=== PATIENT | female | born 1990 | race American Indian/Alaskan Native ===

== ENCOUNTER 2016-09-29 09:03 | Emergency (ER) | payer MEDICAID ==
[2016-09-29 09:26] VITALS: BP 95/67
[2016-09-29] MEDS ORDERED: ZITHROMAX PO ONE (10:13)
[2016-09-29] MEDS ORDERED: ROCEPHIN IM ONE (10:13)
[2016-09-29] MEDS ORDERED: XYLOCAINE 1% MPF 5 mL INFILTRATI ONE (10:13)
--- NOTE | 2016-09-29 10:28 | Emergency Department Report ---
ED General Adult HPI - General Chief complaint: Urogenital-Female Stated complaint: std Time Seen by Provider: 09/29/16 10:01 Source: patient Mode of arrival: Ambulatory Limitations: No Limitations - History of Present Illness Initial comments: PT states that she had unprotected sex this am around 0300. PT states when she left the man's house, a note was on her car. PT has a note with her that says, "he has HIV" PT states she called the man she had sex with but he did not answer. PT called the nurse line and was told to go to the ED. PT denies any symptoms at this time. PT states she has not had a recent HIV test, last one was probably 05-04-09 when she delivered. PT states she has an IUD MD Complaint: std exposure -: hour(s) Time: 03:00 Severity scale (0 -10): 0 Associated Symptoms: denies other symptoms. denies: nausea/vomiting Treatments Prior to Arrival: none - Related Data Previous Rx's Medication Instructions Recorded Last Taken Type traMADol [Ultram] 50 mg PO Q6HR PRN #20 tablet 03/18/16 Unknown Rx Allergies Allergy/AdvReac Type Severity Reaction Status Date / Time No Known Allergies Allergy Verified 02/24/15 01:35 ED Review of Systems ROS: Stated complaint: HEADACHE Other details as noted in HPI Comment: All other systems reviewed and negative Constitutional: denies: chills, fever Respiratory: denies: shortness of breath Endocrine: denies: unexplained weight loss Genitourinary: denies: dysuria, discharge, abnormal menses Skin: denies: rash ED Past Medical Hx - Past Medical History Previous Medical History?: No - Surgical History Past Surgical History?: No - Social History Smoking Status: Current Every Day Smoker Substance Use Type: Alcohol, Marijuana - Medications Home Medications: Home Medications Medication Instructions Recorded Confirmed Last Taken Type traMADol [Ultram] 50 mg PO Q6HR PRN #20 tablet 03/18/16 Unknown Rx ED Physical Exam - General Limitations: No Limitations General appearance: alert, in no apparent distress - Head Head exam: Present: atraumatic, normocephalic, normal inspection - Eye Eye exam: Present: normal appearance, EOMI - ENT ENT exam: Present: normal exam, normal external ear exam - Neck Neck exam: Present: normal inspection, full ROM - Respiratory Respiratory exam: Present: normal lung sounds bilaterally. Absent: respiratory distress, chest wall tenderness - Cardiovascular Cardiovascular Exam: Present: regular rate, normal rhythm - GI/Abdominal GI/Abdominal exam: Present: soft. Absent: tenderness - Extremities Exam Extremities exam: Present: normal inspection, full ROM - Back Exam Back exam: Present: normal inspection, full ROM - Neurological Exam Neurological exam: Present: alert, oriented X3 - Psychiatric Psychiatric exam: Present: normal affect, normal mood - Skin Skin exam: Present: warm, dry, intact, normal color ED Course Vital Signs 09/29/16 09:19 Temperature 98.4 F Pulse Rate 80 Respiratory 16 Rate Blood Pressure 95/67 O2 Sat by Pulse 100 Oximetry - Reevaluation(s) Reevaluation #1: 09/29/16 10:28 Dr Marinelli aware of pt, will offer empiric treatment for gc and ct and refer to the health dept. - Pulse Oximetry Interpretation Digit-Finger Initial Pulse Oximetry Readin Actions Taken: none ED Medical Decision Making - Differential Diagnosis STD exposure, risky sexual behavior Critical Care Time: No Critical care attestation.: If time is entered above; I have spent that time in minutes in the direct care of this critically ill patient, excluding procedure time. ED Disposition Clinical Impression: Risky sexual behavior, Possible exposure to STD Disposition: DC-01 TO HOME OR SELFCARE Is pt being admited?: No Does the pt Need Aspirin: No Condition: Stable Instructions: Sexually Transmitted Diseases (ED), Safe Sex (ED) Additional Instructions: No sex for the next 7 days Follow up with the health dept today - you will need HIV testing and possibly PEP Encourage your sexual partner to follow up for HIV testing Referrals: LISSETH MILLER MD [Primary Care Provider] - 3-5 Days FRED DIAZ MD [Staff Physician] - 3-5 Days [facility] [Outside] - 3-5 Days Forms: Work/School Release Form(ED) Time of Disposition: 10:30
== END 2016-09-29 10:39 | disposition home or self-care (01) ==
LOC: ED 09:03
DX: Z20.2 Contact with and (suspected) exposure to infections with a predominantly sexual mode of transmission (principal); F17.200 Nicotine dependence, unspecified, uncomplicated; F12.10 Cannabis abuse, uncomplicated
CPT/HCPCS: 96372; 99282; J0696